=== PATIENT | female | born 1975 | race Caucasian/White ===

== ENCOUNTER 2022-04-04 12:09 | Emergency (ER) | payer BC | END 2022-04-04 13:59 | disposition home or self-care (01) | LOC: MW.ED 12:09 | DX: Z76.0 Encounter for issue of repeat prescription (principal); Z88.2 Allergy status to sulfonamides; Z79.899 Other long term (current) drug therapy; Z90.49 Acquired absence of other specified parts of digestive tract | CPT/HCPCS: 99281 ==